=== PATIENT | female | born 1995 | race Caucasian/White ===

== ENCOUNTER 2018-05-07 17:26 | Emergency (ER) | payer MEDICAID ==
[2018-05-07 18:35] LABS: ADD MAN DIFF? NO
[2018-05-07] MEDS: ACETAMINOPHEN 325 MG TAB PO (18:40)
[2018-05-07] MEDS: ONDANSETRON (ODT) 4 MG TAB ODT (18:40)
[2018-05-07 19:07] LABS: BASOPHILS % 0.3 % (0.0-2.0); EOSINOPHILS # 0.2 10^3/ul (0.0-0.5); EOSINOPHILS % 1.5 % (0.0-7.0); HEMATOCRIT 38.9 % (37.0-47.0); HEMOGLOBIN 13.1 g/dl (12.0-16.0); LYMPHOCYTES # 2.5 10^3/ul (0.8-2.9); LYMPHOCYTES % 23.3 % (15.0-51.0); MEAN CORPUSCULAR HEMOGLOBIN 30.7 pg (29.0-33.0); MEAN CORPUSCULAR HGB CONC 33.7 g/dl (32.0-37.0); MEAN CORPUSCULAR VOLUME 91.1 fl (82.0-101.0); MEAN PLATELET VOLUME 9.3 fl (7.4-10.4); MONOCYTE # 0.6 10^3/ul (0.3-0.9); MONOCYTES % 5.5 % (0.0-11.0); NEUTROPHIL # 7.4 10^3/ul (1.6-7.5); PLATELET COUNT 275 10^3/UL (140-415); RED BLOOD COUNT 4.27 10^6/ul (4.20-5.40); RED CELL DISTRIBUTION WIDTH 12.9 % (11.5-14.5)
[2018-05-07 19:07] LABS: WHITE BLOOD COUNT 10.7 10^3/ul (4.8-10.8)
[2018-05-07 19:12] LABS: ADD UMIC YES; UR ASCORBIC ACID NEGATIVE (NEGATIVE); UR BACTERIA MODERATE /HPF (NONE SEEN); UR BILIRUBIN (Dip) NEGATIVE (NEGATIVE); UR BLOOD (Dip) NEGATIVE (NEGATIVE); UR CLARITY CLOUDY (CLEAR); UR COLOR YELLOW (YELLOW); UR GLUCOSE (Dip) NEGATIVE (NEGATIVE); UR KETONES (Dip) NEGATIVE (NEGATIVE); UR LEUKOCYTE ESTERASE (Dip) TRACE Leu/ul (NEGATIVE); UR NITRITE (Dip) NEGATIVE (NEGATIVE); UR RBC 3 /HPF (0-5); UR SPECIFIC GRAVITY (Dip) 1.025 (1.003-1.030); UR SQUAMOUS EPITHELIAL CELL MODERATE /HPF (FEW); UR TOTAL PROTEIN (Dip) NEGATIVE (NEGATIVE); UR UROBILINOGEN (Dip) NEGATIVE (NEGATIVE); UR WBC 6 /HPF (0-5)
[2018-05-07 19:19] LABS: POTASSIUM 3.6 mmol/L (3.5-5.1)
[2018-05-07 19:21] LABS: ALANINE AMINOTRANSFERASE 19 IU/L (13-69); ALBUMIN 3.6 g/dl (3.3-4.9); ALBUMIN/GLOBULIN RATIO 1.16; ALKALINE PHOSPHATASE 55 IU/L (42-121); ANION GAP 8 (5-13); ASPARTATE AMINO TRANSFERASE 15 IU/L (15-46); BILIRUBIN,INDIRECT 0.3 mg/dl (0-1.1); BILIRUBIN,TOTAL 0.3 mg/dl (0.2-1.3); BLOOD UREA NITROGEN 9 mg/dl (7-20); CALCIUM 8.8 mg/dl (8.4-10.2); CARBON DIOXIDE 26 mmol/L (21-31); CHLORIDE 103 mmol/L (97-110); CREATININE 0.42 mg/dl (0.44-1.00); Estimated GFR > 60 mL/min (>60); GLUCOSE 68 mg/dl (70-220); SODIUM 137 mmol/L (135-144); TOTAL PROTEIN 6.7 g/dl (6.1-8.1)
== END 2018-05-07 20:33 | disposition home or self-care (01) ==
LOC: FTE 17:26
DX: O26.892 Other specified pregnancy related conditions, second trimester (principal); R10.2 Pelvic and perineal pain; Z3A.17 17 weeks gestation of pregnancy
CPT/HCPCS: 36415; 76805; 80053; 81001; 84702; 85025; 86900; 86901; 99284-25

== ENCOUNTER 2018-09-07 10:48 | Outpatient (CLI) | payer MEDICAID ==
[2018-09-07 11:50] LABS: ADD MAN DIFF? NO
[2018-09-07 11:54] LABS: BASOPHILS % 0.4 % (0.0-2.0); EOSINOPHILS # 0.1 10^3/ul (0.0-0.5); EOSINOPHILS % 1.2 % (0.0-7.0); HEMATOCRIT 39.1 % (37.0-47.0); HEMOGLOBIN 12.8 g/dl (12.0-16.0); LYMPHOCYTES # 1.5 10^3/ul (0.8-2.9); LYMPHOCYTES % 17.4 % (15.0-51.0); MEAN CORPUSCULAR HEMOGLOBIN 29.2 pg (29.0-33.0); MEAN CORPUSCULAR HGB CONC 32.7 g/dl (32.0-37.0); MEAN CORPUSCULAR VOLUME 89.3 fl (82.0-101.0); MEAN PLATELET VOLUME 9.2 fl (7.4-10.4); MONOCYTE # 0.5 10^3/ul (0.3-0.9); MONOCYTES % 5.6 % (0.0-11.0); NEUTROPHIL # 6.4 10^3/ul (1.6-7.5); NEUTROPHILS % 74.9 % (39.0-77.0); PLATELET COUNT 257 10^3/UL (140-415); RED BLOOD COUNT 4.38 10^6/ul (4.20-5.40); RED CELL DISTRIBUTION WIDTH 13.1 % (11.5-14.5)
[2018-09-07 11:54] LABS: WHITE BLOOD COUNT 8.6 10^3/ul (4.8-10.8)
[2018-09-07] MEDS: HYDROCODONE/APAP (5/325) TAB PO (12:22)
[2018-09-07 12:27] LABS: ADD UMIC YES; UR ASCORBIC ACID NEGATIVE (NEGATIVE); UR BACTERIA FEW /HPF (NONE SEEN); UR BILIRUBIN (Dip) NEGATIVE (NEGATIVE); UR BLOOD (Dip) 1+ mg/dL (NEGATIVE); UR CLARITY CLEAR (CLEAR); UR COLOR YELLOW (YELLOW); UR GLUCOSE (Dip) NEGATIVE (NEGATIVE); UR KETONES (Dip) NEGATIVE (NEGATIVE); UR LEUKOCYTE ESTERASE (Dip) NEGATIVE Leu/ul (NEGATIVE); UR MUCUS FEW /HPF (NONE SEEN); UR NITRITE (Dip) NEGATIVE (NEGATIVE); UR RBC 0 /HPF (0-5); UR SPECIFIC GRAVITY (Dip) 1.011 (1.003-1.030); UR SQUAMOUS EPITHELIAL CELL FEW /HPF (FEW); UR TOTAL PROTEIN (Dip) NEGATIVE (NEGATIVE); UR UROBILINOGEN (Dip) NEGATIVE (NEGATIVE); UR WBC 1 /HPF (0-5)
== END 2018-09-07 15:18 | disposition home or self-care (01) ==
LOC: OBT 10:48 → L-D 10:48 → OBT 15:18
DX: O26.893 Other specified pregnancy related conditions, third trimester (principal); M54.9 Dorsalgia, unspecified; O32.1XX0 Maternal care for breech presentation, not applicable or unspecified; Z3A.35 35 weeks gestation of pregnancy
CPT/HCPCS: 76818; 81001; 85025

== ENCOUNTER 2018-09-27 15:54 | Outpatient (CLI) | payer MEDICAID ==
[2018-09-27 17:18] LABS: ADD MAN DIFF? NO
[2018-09-27 17:22] LABS: BASOPHILS % 0.2 % (0.0-2.0); EOSINOPHILS # 0.1 10^3/ul (0.0-0.5); EOSINOPHILS % 1.1 % (0.0-7.0); HEMATOCRIT 38.8 % (37.0-47.0); HEMOGLOBIN 12.8 g/dl (12.0-16.0); LYMPHOCYTES # 1.8 10^3/ul (0.8-2.9); LYMPHOCYTES % 17.3 % (15.0-51.0); MEAN CORPUSCULAR HEMOGLOBIN 28.8 pg (29.0-33.0); MEAN CORPUSCULAR VOLUME 87.4 fl (82.0-101.0); MEAN PLATELET VOLUME 9.7 fl (7.4-10.4); MONOCYTE # 0.7 10^3/ul (0.3-0.9); MONOCYTES % 6.4 % (0.0-11.0); NEUTROPHIL # 7.8 10^3/ul (1.6-7.5); NEUTROPHILS % 74.6 % (39.0-77.0); PLATELET COUNT 268 10^3/UL (140-415); RED BLOOD COUNT 4.44 10^6/ul (4.20-5.40); RED CELL DISTRIBUTION WIDTH 13.2 % (11.5-14.5)
[2018-09-27 17:22] LABS: WHITE BLOOD COUNT 10.4 10^3/ul (4.8-10.8)
[2018-09-27 17:36] LABS: ADD UMIC NO; UR ASCORBIC ACID NEGATIVE (NEGATIVE); UR BACTERIA FEW /HPF (NONE SEEN); UR BILIRUBIN (Dip) NEGATIVE (NEGATIVE); UR BLOOD (Dip) NEGATIVE (NEGATIVE); UR CLARITY SLIGHTLY CLOUDY (CLEAR); UR COLOR YELLOW (YELLOW); UR GLUCOSE (Dip) NEGATIVE (NEGATIVE); UR KETONES (Dip) NEGATIVE (NEGATIVE); UR LEUKOCYTE ESTERASE (Dip) NEGATIVE Leu/ul (NEGATIVE); UR NITRITE (Dip) NEGATIVE (NEGATIVE); UR RBC 0 /HPF (0-5); UR SPECIFIC GRAVITY (Dip) 1.019 (1.003-1.030); UR SQUAMOUS EPITHELIAL CELL FEW /HPF (FEW); UR TOTAL PROTEIN (Dip) NEGATIVE (NEGATIVE); UR UROBILINOGEN (Dip) NEGATIVE (NEGATIVE); UR WBC 1 /HPF (0-5)
== END 2018-09-27 18:06 | disposition home or self-care (01) ==
LOC: OBT 15:54 → L-D 15:55 → OBT 18:06
DX: O62.9 Abnormality of forces of labor, unspecified (principal); Z3A.38 38 weeks gestation of pregnancy
CPT/HCPCS: 76818; 81001; 81003; 85025

== ENCOUNTER 2018-09-30 06:00 | Inpatient (IN) | payer MEDICAID ==
[2018-09-30] MEDS: LACTATED RINGER'S 1,000 ML IV (06:15)
[2018-09-30] MEDS ORDERED: AMPICILLIN 2 GM/NS (PMX) 100 ML (06:19)
[2018-09-30] MEDS ORDERED: MINERAL OIL LIGHT 10 ML VIAL TOP (06:30)
[2018-09-30] MEDS ORDERED: METHYLERGONOVINE 0.2 MG INJ IM ×2 (06:30→08:00)
[2018-09-30] MEDS ORDERED: LIDOCAINE 1% (MPF) 30 ML INJ INJ (06:30)
[2018-09-30] MEDS ORDERED: CARBOPROST 250 MCG INJ IM ×2 (06:30→08:00)
[2018-09-30] MEDS ORDERED: BUTORPHANOL 2 MG INJ IV (06:30)
[2018-09-30] MEDS ORDERED: MISOPROSTOL 200 MCG TAB PR ×2 (06:30→08:00)
[2018-09-30] MEDS ORDERED: OXYTOCIN 30 UNITS/LR 500 ML IV ×3 (06:30→08:00)
[2018-09-30] MEDS: AMPICILLIN 2 GM/NS (PMX) 100 ML IV (06:34)
[2018-09-30 06:53] LABS: ADD MAN DIFF? NO
[2018-09-30 06:58] LABS: WHITE BLOOD COUNT 12.7 10^3/ul (4.8-10.8)
[2018-09-30 06:58] LABS: BASOPHILS % 0.2 % (0.0-2.0); EOSINOPHILS # 0.1 10^3/ul (0.0-0.5); EOSINOPHILS % 0.5 % (0.0-7.0); HEMATOCRIT 41.6 % (37.0-47.0); HEMOGLOBIN 13.6 g/dl (12.0-16.0); MEAN CORPUSCULAR HEMOGLOBIN 28.5 pg (29.0-33.0); MEAN CORPUSCULAR HGB CONC 32.7 g/dl (32.0-37.0); MEAN PLATELET VOLUME 9.5 fl (7.4-10.4); MONOCYTE # 0.6 10^3/ul (0.3-0.9); MONOCYTES % 4.3 % (0.0-11.0); NEUTROPHILS % 78.3 % (39.0-77.0); PLATELET COUNT 276 10^3/UL (140-415); RED BLOOD COUNT 4.78 10^6/ul (4.20-5.40); RED CELL DISTRIBUTION WIDTH 13.5 % (11.5-14.5)
[2018-09-30] MEDS: OXYTOCIN 30 UNITS/LR 500 ML IV ×5 (06:58→14:23)
[2018-09-30 07:14] LABS: INR 0.83; PROTIME 11.5 Sec (11.9-14.9); PT RATIO 0.9
[2018-09-30 07:15] LABS: PARTIAL THROMBOPLASTIN TIME 28.2 Sec (23.0-35.0)
[2018-09-30 07:48] LABS: HEPATITIS B SURFACE ANTIGEN NEGATIVE (NEGATIVE)
[2018-09-30] MEDS ORDERED: OXYCODONE/ASPIRIN (4.88/325) TAB PO (08:00)
[2018-09-30] MEDS ORDERED: ONDANSETRON 4 MG INJ IV (08:00)
[2018-09-30] MEDS ORDERED: NACL 0.9% 3 ML SYG IV (08:00)
[2018-09-30] MEDS ORDERED: AMPICILLIN 1 GM/NS (PMX) 50 ML IV (10:30)
[2018-09-30] MEDS: ACETAMINOPHEN 325 MG TAB PO (14:21)
[2018-09-30 15:05] LABS: RAPID PLASMA REAGIN NONREACTIVE (NR)
[2018-09-30] MEDS: LANOLIN HPA 1 PKT TOP (18:26)
[2018-09-30] MEDS: WITCH HAZEL/GLYCERIN PAD PR (18:26)
[2018-09-30 18:37] LABS: AMPHETAMINE/METHAMPHETAMINE Negative (NEGATIVE); BARBITURATES Negative (NEGATIVE); BENZODIAZEPINES Negative (NEGATIVE); CANNABINOIDS Negative (NEGATIVE); COCAINE Negative (NEGATIVE); OPIATES Negative (NEGATIVE)
[2018-09-30] MEDS: SENNA/DOCUSATE NA (8.6MG/50MG) TAB PO ×2 (21:00→21:41)
[2018-10-01] MEDS: IBUPROFEN 600 MG TAB PO ×6 (00:34→18:00)
[2018-10-01 06:41] LABS: ADD MAN DIFF? NO
[2018-10-01 06:47] LABS: BASOPHILS % 0.4 % (0.0-2.0); EOSINOPHILS # 0.1 10^3/ul (0.0-0.5); EOSINOPHILS % 1.3 % (0.0-7.0); HEMATOCRIT 37.9 % (37.0-47.0); HEMOGLOBIN 12.6 g/dl (12.0-16.0); LYMPHOCYTES # 2.4 10^3/ul (0.8-2.9); LYMPHOCYTES % 22.3 % (15.0-51.0); MEAN CORPUSCULAR HGB CONC 33.2 g/dl (32.0-37.0); MEAN CORPUSCULAR VOLUME 87.1 fl (82.0-101.0); MEAN PLATELET VOLUME 9.6 fl (7.4-10.4); MONOCYTE # 0.9 10^3/ul (0.3-0.9); NEUTROPHIL # 7.4 10^3/ul (1.6-7.5); NEUTROPHILS % 67.4 % (39.0-77.0); PLATELET COUNT 262 10^3/UL (140-415); RED BLOOD COUNT 4.35 10^6/ul (4.20-5.40); RED CELL DISTRIBUTION WIDTH 13.4 % (11.5-14.5)
[2018-10-01 06:47] LABS: WHITE BLOOD COUNT 10.9 10^3/ul (4.8-10.8)
[2018-10-01] MEDS: SENNA/DOCUSATE NA (8.6MG/50MG) TAB PO ×2 (09:00→21:46)
[2018-10-02] MEDS: OXYCODONE/ASPIRIN (4.88/325) TAB PO (04:53)
[2018-10-02] MEDS: IBUPROFEN 600 MG TAB PO ×3 (05:50→12:38)
[2018-10-02] MEDS: SENNA/DOCUSATE NA (8.6MG/50MG) TAB PO (09:00)
== END 2018-10-02 16:17 | disposition home or self-care (01) | DRG 807 ==
LOC: OBT 06:00 → L-D 06:00 → OBT 06:01 → L-D 06:01 → PP1 16:59
PROVIDERS: Obstetrics & Gynecology
PROC: 10E0XZZ Delivery of Products of Conception, External Approach (ICD-10-PCS; principal; 2018-09-30)
DX: O80 Encounter for full-term uncomplicated delivery (principal); Z37.0 Single live birth; Z3A.38 38 weeks gestation of pregnancy
CPT/HCPCS: 80307; 85025; 85610; 85730; 86592; 86850; 86900; 86901; 87340; 99464